=== PATIENT | male | born 1970 | race African-American/Black ===

== ENCOUNTER 2020-07-22 06:15 | Emergency (ER) | payer OTHER ==
[~2020-07-22] VITALS: Ht 177.8 cm; Wt 90.7 kg
[2020-07-22 06:20] VITALS: BP 148/89
--- NOTE | 2020-07-22 06:30 | NUR ---
ruby at chair side for medical evaluation.
--- NOTE | 2020-07-22 06:35 | NUR ---
PATIENT BIB [employer]. PATIENT EXAMINED BY DR. HERNANDEZ. PATIENT MEDICALLY CLEARED AND RELEASED IN CUSTODY IN STABLE CONDITION. ORIGINAL PRE-BOOK FORM GIVEN TO OFFICER ALIYAH, #[id number].
== END 2020-07-22 06:35 ==
LOC: MED 06:15
DX: R03.0 Elevated blood-pressure reading, without diagnosis of hypertension (principal); Z02.89 Encounter for other administrative examinations; Z87.442 Personal history of urinary calculi; Z98.890 Other specified postprocedural states
CPT/HCPCS: 99283